=== PATIENT | female | born 1955 | race Caucasian/White ===

== ENCOUNTER 2024-03-12 22:52 | Inpatient (IN) | payer MEDICARE ==
[~2024-03-12] VITALS: Ht 165.1 cm; Wt 82.8 kg
[2024-03-13] VITALS (13 sets, daily range): BP systolic 118–155; BP diastolic 60–84; PULSE 63–85; RESP 13–18; TEMP 97.1–98.3; O2SAT 92–98
[2024-03-13 01:10] LABS: BASOPHILS # (AUTO) 0.1 X10'3 (0-0.2); BASOPHILS % (AUTO) 0.6 % (0-1); EOSINOPHILS % (AUTO) 0.3 % (0-6); HEMATOCRIT 42.3 % (35.0-45.0); HEMOGLOBIN 14.1 g/dl (12.0-16.0); LYMPHOCYTES # (AUTO) 1.4 X10'3 (1.1-4.8); LYMPHOCYTES % (AUTO) 12.8 % (21-51); MEAN CORPUSCULAR HEMOGLOBIN 31.2 PG (27.0-31.0); MEAN CORPUSCULAR HGB CONC 33.4 g/dL (33.0-36.5); MEAN CORPUSCULAR VOLUME 93.4 FL (78-98); MEAN PLATELET VOLUME 7.9 FL (7.4-10.4); MONOCYTES # (AUTO) 0.6 X10'3 (0-0.9); MONOCYTES % (AUTO) 5.1 % (2-12); NEUTROPHILS # (AUTO) 9.2 X10'3 (1.8-7.7); NEUTROPHILS % (AUTO) 81.2 % (42-75); PLATELET COUNT 408 X10'3 (140-440); RED BLOOD COUNT 4.53 X10'6 (4.20-5.60); RED CELL DISTRIBUTION WIDTH 14.6 % (11.5-14.5); WHITE BLOOD COUNT 11.3 X10'3 (4.5-11.0)
[2024-03-13 01:20] LABS: D-DIMER 1.32 MG/L FEU (0-0.50)
[2024-03-13 01:30] LABS: ALBUMIN 3.8 G/DL (3.4-5.0); ANION GAP 7 (8-16); BLOOD UREA NITROGEN 8 MG/DL (7-18); BUN/CREATININE RATIO 8.7 (10.0-20.0); CALCIUM 9.5 MG/DL (8.5-10.1); CHLORIDE 107 MMOL/L (99-107); CREATININE 0.92 MG/DL (0.40-0.90); GLUCOSE 118 MG/DL (70-104); POTASSIUM 3.8 MMOL/L (3.5-5.1); PRO BRAIN NATRIURETIC PEPTIDE 721 PG/ML (0-125); SODIUM 141 MMOL/L (135-145); TOTAL CARBON DIOXIDE 27.2 MMOL/L (24-32); eCRCL 52 ML/MIN; eGFR 61 ML/MIN
[2024-03-13] MEDS: aspirin 81mg tab.chew PO ONE (01:45)
[2024-03-13] MEDS ORDERED: iohexol 350MG/ML 100ml bottle IV ONE (01:48)
[2024-03-13] MEDS ORDERED: NO HOME MEDS (01:55)
[2024-03-13] MEDS ORDERED: metoprolol tartrate 1mg/ml inj IV PRN (02:05)
[2024-03-13] MEDS ORDERED: magnesium hydroxide 30ml (MOM) UD suspension PO PRN (02:05)
[2024-03-13] MEDS ORDERED: magnesium sulf-water 2g/50mL 50 ML IV PRN (02:05)
[2024-03-13] MEDS ORDERED: mag hydrox/Alum hydrox/simeth 30ml oral suspension PO PRN (02:05)
[2024-03-13] MEDS ORDERED: nitroGLYCERIN 0.4mg SUBLingual tab SL PRN (02:05)
[2024-03-13] MEDS ORDERED: aminophylline 250mg/10ml inj. IV PRN (02:05)
[2024-03-13] MEDS ORDERED: magnesium sulf-water 4G/100mL 100 ML IV PRN (02:05)
[2024-03-13] MEDS ORDERED: magnesium Cl slow-release 64mg tablet PO PRN (02:05)
[2024-03-13] MEDS ORDERED: ondansetron/PF 4mg/2ml inj IV PRN (02:05)
[2024-03-13] MEDS ORDERED: potassium Cl 20 mEq SR tablet PO PRN ×2 (02:05)
[2024-03-13] MEDS ORDERED: potassium Cl 40MEQ/1/2NS 520ml 520 ML IV PRN (02:05)
[2024-03-13] MEDS: metoprolol succinate 25mg (24-HOUR) SR. Tablet PO SCH (02:26)
[2024-03-13] MEDS: normal saline 1000ml 1,000 ML IV ONE (02:26)
[2024-03-13 02:38] LABS: ALANINE AMINOTRANSFERASE 15 U/L (12-78); ALBUMIN/GLOBULIN RATIO 0.9 (1.1-1.5); ALKALINE PHOSPHATASE 71 IU/L (46-116); ASPARTATE AMINO TRANSFERASE 14 U/L (10-37); BILIRUBIN,DIRECT 0.2 MG/DL (0-0.3); BILIRUBIN,TOTAL 0.9 MG/DL (0.1-1.0); MAGNESIUM 2.2 MG/DL (1.5-2.4); PHOSPHORUS 2.1 MG/DL (2.3-4.5); TOTAL PROTEIN 7.9 G/DL (6.4-8.2)
[2024-03-13 02:39] LABS: HEMOGLOBIN A1C 5.6 % (4.5-6.2)
[2024-03-13 02:44] LABS: APTT 25 SECONDS (22-32); PROTHROMBIN TIME 10.1 SECONDS (9.0-12.0)
[2024-03-13 02:50] LABS: BILIRUBIN,URINE NEGATIVE (Neg); CLARITY,URINE CLEAR (Clear); COLOR,URINE STRAW (Yellow); GLUCOSE, URINE NEGATIVE (Neg); KETONES,URINE NEGATIVE (Neg); LEUKOCYTE ESTERASE ,URINE NEGATIVE (Neg); NITRITES, URINE NEGATIVE (Neg); OCCULT BLOOD,URINE NEGATIVE (Neg); PROTEIN,URINE NEGATIVE (Neg); UROBILINOGEN,URINE 0.2 E.U/dL (0.2-1.0)
[2024-03-13 03:12] LABS: UA COLLECTION TYPE CLN CATCH MIDSTREAM
[2024-03-13] MEDS: HEPARIN DRIP-CARDIAC**PHARMACIST-TO-DOSE IV NR (03:39)
[2024-03-13] MEDS: heparin 25,000 UNIT/250ml bag 250 ML IV PRN (04:04)
[2024-03-13] MEDS: heparin 10,000 units/1 ML INJ IV ONE (04:05)
[2024-03-13] MEDS: Melatonin 3mg tablet PO SCH (04:07)
[2024-03-13] MEDS: MESSAGE TO NURSING IV ONE ×2 (04:09→12:02)
[2024-03-13] MEDS: K and/or MAG REPLACEMENT MC SCH (08:00)
[2024-03-13] MEDS ORDERED: enoxaparin 40mg/0.4ml syringe SUBCUT SCH (08:00)
[2024-03-13] MEDS: aspirin 81mg tab.chew PO SCH (09:01)
[2024-03-13] MEDS: atorvastatin 20mg tablet PO SCH (09:02)
[2024-03-13] MEDS: heparin 10,000 units/1 ML INJ IV PRN (12:00)
[2024-03-13] MEDS: regadenoson 0.4mg/5ml syringe IV PRN (13:47)
[2024-03-13] MEDS: acetaminophen 325mg tablet PO PRN (16:09)
[2024-03-13] MEDS ORDERED: NITR0.4T51 SL (16:14)
[2024-03-13] MEDS ORDERED: ASPI81TA53 PO (16:14)
[2024-03-13] MEDS ORDERED: ATOR20TA66 PO (16:14)
[2024-03-13] MEDS ORDERED: METO-395 PO (16:14)
[2024-03-14 01:10] LABS: BASOPHILS # (AUTO) 0.1 X10'3 (0-0.2); BASOPHILS % (AUTO) 1.2 % (0-1); EOSINOPHILS # (AUTO) 0.1 X10'3 (0-0.9); EOSINOPHILS % (AUTO) 1.2 % (0-6); HEMATOCRIT 39.9 % (35.0-45.0); HEMOGLOBIN 13.5 g/dl (12.0-16.0); LYMPHOCYTES # (AUTO) 2.9 X10'3 (1.1-4.8); LYMPHOCYTES % (AUTO) 29.4 % (21-51); MEAN CORPUSCULAR HEMOGLOBIN 31.6 PG (27.0-31.0); MEAN CORPUSCULAR HGB CONC 33.8 g/dL (33.0-36.5); MEAN CORPUSCULAR VOLUME 93.3 FL (78-98); MEAN PLATELET VOLUME 8.6 FL (7.4-10.4); MONOCYTES # (AUTO) 0.6 X10'3 (0-0.9); MONOCYTES % (AUTO) 6.3 % (2-12); NEUTROPHILS % (AUTO) 61.9 % (42-75); PLATELET COUNT 322 X10'3 (140-440); RED BLOOD COUNT 4.28 X10'6 (4.20-5.60); WHITE BLOOD COUNT 9.7 X10'3 (4.5-11.0)
[2024-03-14 01:26] LABS: ALBUMIN 3.6 G/DL (3.4-5.0); ANION GAP 6 (8-16); BLOOD UREA NITROGEN 8 MG/DL (7-18); CALCIUM 9.3 MG/DL (8.5-10.1); CHLORIDE 107 MMOL/L (99-107); CHOL/HDL RATIO 3.5 (0.00-4.99); CHOLESTEROL 206 MG/DL (0-200); CREATININE 0.89 MG/DL (0.40-0.90); GLUCOSE 107 MG/DL (70-104); HDL CHOLESTEROL 59 MG/DL (35-60); LDL CHOLESTEROL 124 MG/DL (50-100); POTASSIUM 3.7 MMOL/L (3.5-5.1); SODIUM 140 MMOL/L (135-145); TOTAL CARBON DIOXIDE 26.7 MMOL/L (24-32); TRIGLYCERIDES 137 MG/DL (20-135); eCRCL 54 ML/MIN; eGFR 63 ML/MIN
[2024-03-14] MEDS: MESSAGE TO NURSING IV ONE ×2 (01:44→09:03)
[2024-03-14 06:00] VITALS: BP 123/68; PULSE 72; RESP 14; TEMP 97.2; O2SAT 96
[2024-03-14 08:00] VITALS: RESP 18; O2SAT 94
[2024-03-14 11:00] VITALS: BP 141/75; PULSE 64; RESP 18; TEMP 98.4; O2SAT 96
== END 2024-03-14 14:00 | disposition home or self-care (01) | DRG 282 ==
LOC: ER 22:53 → ED HOLD 03-13 02:13 → PCU 3S 03-13 08:20
PROVIDERS: ADMIT Internal Medicine Critical Care Medicine; ATTEND Internal Medicine
PROC: 4A00X4Z Measurement of Central Nervous Electrical Activity, External Approach (ICD-10-PCS; principal; 2024-03-13)
PROC: 4A02XM4 Measurement of Cardiac Total Activity, External Approach (ICD-10-PCS; 2024-03-13)
PROC: 3E033HZ Introduction of Radioactive Substance into Peripheral Vein, Percutaneous Approach (ICD-10-PCS; 2024-03-13)
PROC: B32T1ZZ Computerized Tomography (CT Scan) of Left Pulmonary Artery using Low Osmolar Contrast (ICD-10-PCS; 2024-03-13)
PROC: B3201ZZ Computerized Tomography (CT Scan) of Thoracic Aorta using Low Osmolar Contrast (ICD-10-PCS; 2024-03-13)
PROC: B32S1ZZ Computerized Tomography (CT Scan) of Right Pulmonary Artery using Low Osmolar Contrast (ICD-10-PCS; 2024-03-13)
DX: I21.4 Non-ST elevation (NSTEMI) myocardial infarction (principal); I71.21 Aneurysm of the ascending aorta, without rupture; I10 Essential (primary) hypertension; I34.0 Nonrheumatic mitral (valve) insufficiency; J47.9 Bronchiectasis, uncomplicated; Z90.49 Acquired absence of other specified parts of digestive tract; Z90.710 Acquired absence of both cervix and uterus; E78.5 Hyperlipidemia, unspecified; Z79.82 Long term (current) use of aspirin
CPT/HCPCS: 36415; 71045; 71275; 78452; 80048; 80061; 80076; 81003; 83036; 83735; 83880; 84100; 84484; 85025; 85379; 85610; 85730; 93005; 93017; 93306; 93970; 99285; A9500; G0378; J1644; J2785; J7030; Q9967